=== PATIENT | male | born 1945 | race African-American/Black ===

== ENCOUNTER 2022-05-08 10:05 | Day surgery (SDC) | payer MEDICARE, OTHER, SELFPAY ==
[2022-05-08] MEDS: Tropicam./Phenyleph. (1/2.5%) 5 ML BTL ×3 (11:07→11:20)
[2022-05-08 11:10] VITALS: BP 147/89; PULSE 70; RESP 16; TEMP 36.1; O2SAT 100
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
[2022-05-08 11:55] VITALS: BMI 35.0
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
[2022-05-08] MEDS: Duovisc Viscoelastic System EACH 1 EACH (12:14)
[2022-05-08] MEDS: Balanced Salt Soln.-PLUS 500 ML BAG (12:14)
[2022-05-08] MEDS: Tetracaine 0.5% 4 ML BTL (12:14)
[2022-05-08] MEDS: Lidocaine 2% Jelly 6 ML SYR (12:15)
[2022-05-08] MEDS: Povidone-Iodine Ophth 30 ML BTL (12:16)
[2022-05-08 12:37] VITALS: BP 136/80; PULSE 70; RESP 16; TEMP 36.1; O2SAT 99
--- NOTE | 2022-05-08 12:41 | ROE_ITS ---
Date of service: 05/08/22 Time of Service: 12:41 Operative Note Operative Note DATE OF PROCEDURE: 05/08/22 PRE-OP DIAGNOSIS: Nuclear/cortical cataract, left eye POST-OP DIAGNOSIS: same PROCEDURE: Cataract extraction using phacoemulsification with intraocular lens implant, left eye SURGEON: Marbin Lewis ANESTHESIA TYPE: Local By Surgeon and MAC Refer to Anesthesia Record PATHOLOGY: none sent COMPLICATIONS: None Patient was transported to: same day Patient's condition: stable Implants: [employer] Tecnis [id number] Indications: Progressive decreased vision due to cataract, left eye Procedure Description: CATARACT SURGERY OPERATIVE REPORT PREOPERATIVE DIAGNOSIS: 1. Nuclear/cortical cataract, left eye POSTOPERATIVE DIAGNOSIS: Same OPERATION: 1. Cataract extraction using phacoemulsification with posterior chamber intraocular lens implant, left eye. IOL: IOL Casino Supervisor/Model: [employer] / MAKAYLA Tecnis [id number] IOL Power: + 21.5 diopters IOL Serial Number: [id number] Optic Diameter: 6.0 mm Haptic/Overall Diameter: 13.0 mm PHACO INFO: [employer] a Division [employer] Vision System with [employer] and [employer] Cumulative Dispersed Energy (CDE): 10.67 seconds SURGEON: Marbin Lewis MD, HARSHAL ANESTHESIA: Monitored A [facility] (MAC), with local sub-tenon's anesthetic infiltration COMPLICATIONS: None SPECIMENS: None INDICATIONS FOR PROCEDURE: The patient is a 77-year-old gentleman with history of diminished visual acuity in his left eye secondary to the development of nuclear/cortical cataract. He is significantly symptomatic that he desires cataract surgery attempt to improve and maximize his vision. The option of cataract surgery was offered to the patient and he wished to proceed. PROCEDURE: The correct surgical eye was identified and marked as the left eye and the pupil was dilated in the preoperative area using mydriatics and cycloplegics. The dilated pupil size was 7.0 mm. The patient elected to proceed without oral sedation. The patient was brought to the operating room where cardiopulmonary monitoring was instituted and surgical time-out was performed, confirming the correct operative eye and IOL power. Topical anesthesia was administered and ophthalmic povidone-iodine 5% was instilled into the conjunctival fornices. Lidocaine gel was applied to the cornea and the macrina-ocular area was prepped with Betadine 10% solution and draped in the usual sterile fashion for intraocular surgery, including an aperture drape. A Tegaderm transparent film dressing was cut in half and used to cover the lashes and lid margins. Care was taken to sequester the lashes and lid margins under the Tegaderm dressing. A lid speculum was placed between the lids of the operative eye and the Skip [employer] Revalia operating microscope was maneuvered into position. Caden scissors were then used to make a conjunctival buttonhole approximately 6mm posterior to the limbus in the inferonasal quadrant. Blunt dissection was carried out to expose bare sclera, and a blunt-tipped sub-tenon?s anesthesia cannula was introduced and passed posteriorly along the globe where non- preserved plain lidocaine was injected into posterior sub-Tenon?s space. A sideport knife was used to make a paracentesis port superiorly/superiortemporally. Intraocular phenylephrine/lidocaine was injected int the anterior chamber.. The anterior chamber was filled with viscoelastic. A keratome knife was used to construct a 2-plane near-clear corneal tunnel extending 2.0mm into clear cornea temporally. A flap was raised on the anterior capsule and capsulorhexis forceps were used to complete a continuous curvilinear capsulorhexis of 5.5 mm. Balanced salt solution was then used to perform cortical cleaving hydrodissection and nuclear hydrodelineation until the lens could be freely rotated within the capsular bag. The lens nucleus was then disassembled and removed within the capsular bag and iris plane using phacoemulsification. Residual cortical material was removed using the 45-degree angled silicone I/A tip with 0.3mm port. The posterior capsule was carefully polished to remove as much residual lens epithelial cells as safely possible. The capsular bag was then inflated and the anterior chamber deepened with viscoelastic. The lens implant described above was inserted into the capsular bag using the MAKAYLA [employer] [place] Injector. A Kuglen hook was used to dial the IOL into position. Residual viscoelastic was then removed first from posterior to the IOL, then from the anterior chamber using the I/A handpiece. The lens implant was noted to center nicely within the capsular bag. The incisions were stromally hydrated, and the anterior chamber was reformed using BSS. Then 0.5cc of moxifloxacin 1.0mg/ml were injected into the capsular bag and anterior chamber. The incisions were checked with a Weck spear and found to be secure. Several drops of ophthalmic povidone-iodine 5% were then applied to the eye followed by two drops of Imprimis combination prednisolone/moxifloxacin/nepafenac solution. The drapes were removed and a clear plastic protective eye shield was placed over the eye. The patient was then returned to [facility] Day Surgery in stable condition.
--- NOTE | 2022-05-08 12:41 | PDOC.DSDIS_ITS ---
Date of service: 05/08/22 Time of Service: 12:41 Discharge Plan Disposition Patient Disposition: HOME Condition: Good Discharge Details Attending Provider: Marbin Lewis Primary Care Provider: Angelika De La Fuente [place] Meds and New Rx's Prescriptions: No Action atorvastatin 20 mg Tablet 20 mg PO DAILY amiodarone 200 mg Tablet 200 mg PO DAILY metoprolol succinate 25 mg Tablet Extended Release 24 Hr 12.5 mg PO DAILY multivitamin Capsule 1 cap PO DAILY Xarelto 20 mg Tablet 20 mg PO DAILY tamsulosin 0.4 mg Capsule 0.4 mg PO DAILY nitroglycerin 0.4 mg Tablet, Sublingual 0.4 mg sublingual PRN PRN Discharge Instructions Stand Alone Forms: Post-op Topical CataractAmanda (DSU) Discharge Orders Discharge Orders: Discharge Order (Routine); Ordered 05/08/22 Ordered By: Marbin Lewis DS: Diagnosis Discharge Diagnosis (1) Nuclear sclerotic cataract of left eye: Status: Resolved (2) Cortical cataract of left eye: Status: Resolved
--- NOTE | 2022-05-08 12:57 | W.ANESPOSTOP ---
Postoperative Evaluation Date, Time and Location Date Performed: 05/08/22 Time Performed: 12:40 Patient Location: Day Surgery Unit Vital Signs Most Recent Imported Vital Signs: Most Recent Vital Signs Temp Pulse Resp BP Pulse Ox 36.1 C L 70 16 147/89 H 100 05/08/22 11:10 05/08/22 11:10 05/08/22 11:10 05/08/22 11:10 05/08/22 11:10 Pain Score Most Recent Pain Score: Most Recent Pain Score Pain Level 0 05/08/22 11:10 Assessment Mental Status: Awake (Alert & Oriented to Patient Baseline) Airway and Respiratory Function: Patent airway with normal (patient baseline) respiratory exam Cardiovascular Function: Hemodynamically Stable Hydration Status: Adequately Hydrated Nausea & Vomiting: No Nausea or Vomiting Pain: Pt. Denies Any Pain Peripheral Nerve Block: Patient did not receive a nerve block
== END 2022-05-08 13:00 | disposition home or self-care (01) ==
LOC: SUR 10:07
PROVIDERS: PCP Family Medicine; Visit Provider Ophthalmology
PROC: (CPT 66984; principal; 2022-05-08 13:30)
DX: H25.12 Age-related nuclear cataract, left eye (principal)
CPT/HCPCS: 66984; V2632

== ENCOUNTER 2022-05-22 08:03 | Day surgery (SDC) | payer MEDICARE, OTHER, SELFPAY ==
[2022-05-22 08:15] VITALS: BP 134/80; PULSE 68; RESP 16; TEMP 36; O2SAT 100
[2022-05-22] MEDS: Tropicam./Phenyleph. (1/2.5%) 5 ML BTL OD ×3 (08:30→08:46)
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
[2022-05-22 09:04] VITALS: BMI 36.7
[2022-05-22] MEDS: Tetracaine 0.5% 4 ML BTL OD (09:33)
[2022-05-22] MEDS: Povidone-Iodine Ophth 30 ML BTL (09:34)
[2022-05-22] MEDS: Lidocaine 2% Jelly 6 ML SYR (09:34)
[2022-05-22] MEDS: Lidocaine 1% Pres-Free 5 ML VIAL (09:39)
[2022-05-22] MEDS: Balanced Salt Soln.-PLUS 500 ML BAG (09:41)
[2022-05-22] MEDS: Duovisc Viscoelastic System EACH 1 EACH (09:41)
[2022-05-22 10:01] VITALS: BP 131/68; PULSE 59; RESP 16; TEMP 36.3; O2SAT 100
--- NOTE | 2022-05-22 10:01 | ROE_ITS ---
Date of service: 05/22/22 Time of Service: 10:02 Operative Note Operative Note DATE OF PROCEDURE: 05/22/22 PRE-OP DIAGNOSIS: Nuclear/cortical cataract, right eye POST-OP DIAGNOSIS: same PROCEDURE: Cataract extraction using phacoemulsification with intraocular lens implant, right eye SURGEON: Marbin Lewis ANESTHESIA TYPE: Local By Surgeon and MAC Refer to Anesthesia Record ESTIMATED BLOOD LOSS: 0 PATHOLOGY: none sent COMPLICATIONS: None Patient was transported to: same day Patient's condition: stable Implants: [employer]/MAKAYLA Tecnis [id number] Indications: Progressive visual loss due to cataract, right eye Procedure Description: CATARACT SURGERY OPERATIVE REPORT PREOPERATIVE DIAGNOSIS: 1. Nuclear/cortical cataract, right eye POSTOPERATIVE DIAGNOSIS: Same OPERATION: 1. Cataract extraction using phacoemulsification with posterior chamber intraocular lens implant, right eye. IOL: IOL Editor/Model: [employer] / MAKAYLA Tecnis ZCB00 IOL Power: + 21.5 diopters IOL Serial Number: [id number] Optic Diameter: 6.0mm Haptic/Overall Diameter: 13.0mm PHACO INFO: Skip LiquiGlideurion Vision System with OZil and Active Fluidics Cumulative Dispersed Energy (CDE): 14.02 seconds SURGEON: Marbin Lewis MD, HARSHAL ANESTHESIA: Monitored Anesthesia Care (MAC), with local sub-tenon's anesthetic infiltration COMPLICATIONS: None SPECIMENS: None INDICATIONS FOR PROCEDURE: The patient is a 77-year-old gentleman with history of diminished visual acuity in both eyes secondary to development of bilateral nuclear/cortical cataract. He has already undergone cataract surgery in the left eye and is doing well postoperatively. He now presents for cataract surgery in the right eye. PROCEDURE: The correct surgical eye was identified and marked as the right eye and the pupil was dilated in the preoperative area using mydriatics and cycloplegics. The dilated pupil size was 6.5 mm. The patient elected to proceed without oral sedation. The patient was brought to the operating room where cardiopulmonary monitoring was instituted and surgical time-out was performed, confirming the correct operative eye and IOL power. Topical anesthesia was administered and ophthalmic povidone-iodine 5% was instilled into the conjunctival fornices. Lidocaine gel was applied to the cornea and the macrina-ocular area was prepped with Betadine 10% solution and draped in the usual sterile fashion for intraocular surgery, including an aperture drape. A Tegaderm transparent film dressing was cut in half and used to cover the lashes and lid margins. Care was taken to sequester the lashes and lid margins under the Tegaderm dressing. A lid speculum was placed between the lids of the operative eye and the Skip LuxOR Revalia operating microscope was maneuvered into position. Caden scissors were then used to make a conjunctival buttonhole approximately 6mm posterior to the limbus in the inferonasal quadrant. Blunt dissection was carried out to expose bare sclera, and a blunt-tipped sub-tenon?s anesthesia cannula was introduced and passed posteriorly along the globe where non- preserved plain lidocaine was injected into posterior sub-Tenon?s space. A sideport knife was used to make a paracentesis port inferotemporally. Intraocular phenylephrine/lidocaine was injected into the anterior chamber. The anterior chamber was filled with viscoelastic. A keratome knife was used to construct a 2-plane near-clear corneal tunnel extending 2.0mm into clear cornea superiortemporally. A flap was raised on the anterior capsule and capsulorhexis forceps were used to complete a continuous curvilinear capsulorhexis of 5.5 mm. Balanced salt solution was then used to perform cortical cleaving hydrodissection and nuclear hydrodelineation until the lens could be freely rotated within the capsular bag. The lens nucleus was then disassembled and removed within the capsular bag and iris plane using phacoemulsification. Residual cortical material was removed using the I/A handpiece. The posterior capsule was carefully polished to remove as much residual lens epithelial cells as safely possible. The capsular bag was then inflated and the anterior chamber deepened with viscoelastic. The lens implant described above was inserted into the capsular bag using the MAKAYLA [place] Injector. A Kuglen hook was used to dial the IOL into position. Residual viscoelastic was then removed first from posterior to the IOL, then from the anterior chamber using the I/A handpiece. The lens implant was noted to center nicely within the capsular bag. The incisions were stromally hydrated, and the anterior chamber was reformed using BSS. Then 0.5cc of moxifloxacin 1.0mg/ml were injected into the capsular bag and anterior chamber. The incisions were checked with a Weck spear and found to be secure. Several drops of ophthalmic povidone-iodine 5% were then applied to the eye followed by two drops of Imprimis combination prednisolone/moxifloxacin/nepafenac solution. The drapes were removed and a clear plastic protective eye shield was placed over the eye. The patient was then returned to [facility] in stable condition.
--- NOTE | 2022-05-22 10:01 | W.PM.DSUDISC ---
Date of service: 05/22/22 Time of Service: 10:01 Discharge Plan Disposition Patient Disposition: HOME Condition: Good Discharge Details Attending Provider: Marbin Lewis Primary Care Provider: Angelika De La Fuente [place] Meds and New Rx's Prescriptions: No Action atorvastatin 20 mg Tablet 20 mg PO DAILY amiodarone 200 mg Tablet 200 mg PO DAILY metoprolol succinate 25 mg Tablet Extended Release 24 Hr 12.5 mg PO DAILY multivitamin Capsule 1 cap PO DAILY Xarelto 20 mg Tablet 20 mg PO DAILY tamsulosin 0.4 mg Capsule 0.4 mg PO DAILY nitroglycerin 0.4 mg Tablet, Sublingual 0.4 mg sublingual PRN PRN Discharge Instructions Stand Alone Forms: Post-op Topical CataractAmanda (DSU) Discharge Orders Discharge Orders: Discharge Order (Routine); Ordered 05/22/22 Ordered By: Marbin Lewis DS: Diagnosis Discharge Diagnosis (1) Cortical cataract of right eye: Status: Resolved (2) Nuclear sclerotic cataract of right eye: Status: Acute
--- NOTE | 2022-05-22 13:57 | W.ANESPOSTOP ---
Postoperative Evaluation Date, Time and Location Date Performed: 05/22/22 Time Performed: 10:05 Patient Location: Day Surgery Unit Vital Signs Most Recent Imported Vital Signs: Most Recent Vital Signs Temp Pulse Resp BP Pulse Ox 36.3 C L 59 L 16 131/68 100 05/22/22 10:01 05/22/22 10:01 05/22/22 10:01 05/22/22 10:01 05/22/22 10:01 Pain Score Most Recent Pain Score: Most Recent Pain Score Pain Level 0 05/22/22 10:01 Assessment Mental Status: Awake (Alert & Oriented to Patient Baseline) Airway and Respiratory Function: Patent airway with normal (patient baseline) respiratory exam Cardiovascular Function: Hemodynamically Stable Hydration Status: Adequately Hydrated Nausea & Vomiting: No Nausea or Vomiting Pain: Pt. Denies Any Pain Peripheral Nerve Block: Patient did not receive a nerve block
== END 2022-05-22 10:15 | disposition home or self-care (01) ==
LOC: SUR 08:03
PROVIDERS: PCP Family Medicine; Visit Provider Ophthalmology
PROC: (CPT 66984; principal; 2022-05-22 10:30)
DX: H25.11 Age-related nuclear cataract, right eye
CPT/HCPCS: 66984; V2632